=== PATIENT | male | born 1990 | race Caucasian/White ===

== ENCOUNTER → 2024-05-02 | Outpatient (CLI) | payer BC, OTHER ==
--- NOTE | 2024-05-02 12:02 | XR ---
EXAM TYPE: LUMBAR SPINE X RAY SERIES COMPARISON: NONE HISTORY: Pain TECHNIQUE: 4 views are submitted. FINDINGS: Alignment is anatomic. The pedicles are intact. The transverse processes are intact. There is no s pondylolysis or spondylolisthesis. Multilevel [id number] degenerative disc disease with facet arthropathy L5-S1. IMPRESSION: 1. Multilevel [id number] degenerative disc disease.
== END | disposition home or self-care (01) ==
LOC: RADXRYALE 11:02
PROVIDERS: ATTEND Physician Assistant
DX: M51.36 Other intervertebral disc degeneration, lumbar region (principal)
CPT/HCPCS: 72110

== ENCOUNTER 2024-05-03 20:18 | Emergency (ER) | payer BC, OTHER ==
[2024-05-03 20:51] VITALS: RESP 18
[2024-05-03] MEDS: KETOROLAC 15 MG/ML 1 ML VIAL IM STA (21:24)
[2024-05-03] MEDS: DEXAMETHASONE SOD PHOSPHATE 10 MG/ML 1 ML VIAL IM STA (21:25)
[2024-05-03] MEDS: LIDOCAINE 4% PATCH TOPICAL ONE (21:25)
[2024-05-03] MEDS: ORPHENADRINE 30 MG/ML 2 ML VIAL IM STA (21:25)
--- NOTE | 2024-05-03 22:22 | ED ---
Back Pain HPI - General Chief Complaint: Back Pain/Injury Stated Complaint: back pain Time Seen by Provider: 05/03/24 21:03 Source: patient - History of Present Illness Initial Comments: 34-year-old male presenting with chief complaint of lower back pain. Pain has been worsening over the last week. Particularly worse on the right side. Dates that he does not remember any injury or trauma. He was lifting heavy objects prior to his pain. He had a recent x-ray ordered by [facility], has not been given the results yet. No loss of bowel or bladder control or saddle paresthesia. He does have radiation of pain into the right leg on occasion. No abdominal pain, dysuria, hematuria, fever, chills, nausea, vomiting. - Related Data Previous Rx's Medication Instructions Recorded Cyclobenzaprine [Flexeril] 10 mg PO TID PRN #15 tab 05/03/24 Lidocaine 5% Patch [Lidoderm 5% 1 patch TOPICAL DAILY PRN #30 patch 05/03/24 Patch] Allergies Allergy/AdvReac Type Severity Reaction Status Date / Time No Known Allergies Allergy Verified 05/03/24 20:51 Review of Systems ROS Statement: Those systems with pertinent positive or pertinent negative responses have been documented in the HPI. ROS Other: All systems not noted in ROS Statement are negative. General Exam Limitations: no limitations General appearance: alert, in no apparent distress Head exam: Present: atraumatic, normocephalic Eye exam: Present: normal appearance, EOMI Neck exam: Present: normal inspection. Absent: meningismus Respiratory exam: Absent: respiratory distress Cardiovascular Exam: Present: regular rate Back exam: Present: normal inspection, paraspinal tenderness Neurological exam: Present: alert, oriented X3 Psychiatric exam: Present: normal affect, normal mood Skin exam: Present: warm, dry Course Vital Signs 05/03/24 05/03/24 20:40 22:55 Temperature 98.7 F 98.4 F Pulse Rate 76 71 Respiratory 18 18 Rate Blood Pressure 143/86 131/79 O2 Sat by Pulse 98 96 Oximetry Medical Decision Making - Medical Decision Making Was pt. sent in by a medical professional or institution (, PA, IMAGING TECHNOLOGIST, urgent care, hospital, or fci...) When possible be specific @ -No Did you speak to anyone other than the patient for history (EMS, parent, family, police, friend...)? What history was obtained from this source @ -No Did you review nursing and triage notes (agree or disagree)? Why? @ -I reviewed and agree with nursing and triage notes Were old charts reviewed (outside hosp., previous admission, EMS record, old EKG, old radiological studies, urgent care reports/EKG's, fci records)? Report findings @ -Reviewed the patient's x-rays from 05/02, they show multilevel mild to moderate degenerative disc disease Differential Diagnosis (chest pain, altered mental status, abdominal pain women, abdominal pain men, vaginal bleeding, weakness, fever, dyspnea, syncope, headache, dizziness, GI bleed, back pain, seizure, CVA, palpatations, mental health, musculoskeletal)? @ -Not applicable EKG interpreted by me (3pts min.). @ -As above X-rays interpreted by me (1pt min.). @ -None done CT interpreted by me (1pt min.). @ -None done U/S interpreted by me (1pt. min.). @ -None done What testing was considered but not performed or refused? (CT, X-rays, U/S, labs)? Why? @ -None What meds were considered but not given or refused? Why? @ -None Did you discuss the management of the patient with other professionals (professionals i.e. , PA, IMAGING TECHNOLOGIST, lab, RT, psych nurse, social worker assistant, retail account manager, teacher, special forces warrant officer, keycase assembler)? Give summary @ -No Was smoking cessation discussed for >3mins.? @ -No Was critical care preformed (if so, how long)? @ -No Were there social determinants of health that impacted care today? How? (Homelessness, low income, unemployed, alcoholism, drug addiction, transportation, low edu. Level, literacy, decrease access to med. care, fdc, rehab)? @ -No Was there de-escalation of care discussed even if they declined (Discuss DNR or withdrawal of care, Hospice)? DNR status @ -No What co-morbidities impacted this encounter? (DM, HTN, Smoking, COPD, CAD, Cancer, CVA, ARF, Chemo, Hep., AIDS, mental health diagnosis, sleep apnea, morbid obesity)? @ -None Was patient admitted / discharged? Hospital course, mention meds given and route, prescriptions, significant lab abnormalities, going to OR and other pertinent info. @ -34-year-old male presenting with chief complaint of lower back pain. No red flag symptoms. He is given pain medication. He had x-rays performed on 05/02 that showed degenerative disc disease. I educated the patient on his x-ray findings. On reassessment he reports improvement in his pain. He feels ready for discharge home. Follow-up with PCP. Report back to ER with any new or worsening symptoms. Discussed return parameters and answered all questions. Patient conveyed verbal understanding and agreed to the plan. I discussed this case in detail with my attending Dr. Silva Undiagnosed new problem with uncertain prognosis? @ -No Drug Therapy requiring intensive monitoring for toxicity (Heparin, Nitro, Insulin, Cardizem)? @ -No Were any procedures done? @ -No Diagnosis/symptom? @ -Mechanical back pain Acute, or Chronic, or Acute on Chronic? @ -Acute Uncomplicated (without systemic symptoms) or Complicated (systemic symptoms)? @ -Uncomplicated Side effects of treatment? @ -No Exacerbation, Progression, or Severe Exacerbation? @ -No Poses a threat to life or bodily function? How? (Chest pain, [place], [place], pneumonia, PE, COPD, DKA, ARF, appy, cholecystitis, CVA, Diverticulitis, Homicidal, Suicidal, threat to staff... and all critical care pts) @ -No Disposition Clinical Impression: Mechanical back pain Disposition: HOME SELF-CARE Condition: Good Instructions (If sedation given, give patient instructions): Acute Low Back Pain (ED), Lower Back Exercises (ED) Additional Instructions: Follow-up with your PCP. Report back to ER with any new or worsening symptoms. Take Motrin and Tylenol as needed for pain control. Do not take cyclobenzaprine before driving or operating heavy machinery as it may cause drowsiness. Prescriptions: Cyclobenzaprine [Flexeril] 10 mg PO TID PRN #15 tab PRN Reason: Spasms Lidocaine 5% Patch [Lidoderm 5% Patch] 1 patch TOPICAL DAILY PRN #30 patch PRN Reason: Pain Is patient prescribed a controlled substance at d/c from ED?: No Referrals: David Villar DO [Primary Care Provider] - 1-2 days Time of Disposition: 22:20
[2024-05-03 22:58] VITALS: BP 131/79; PULSE 71; TEMP 98.4
== END 2024-05-03 22:57 | disposition home or self-care (01) ==
LOC: SUPCPDRO 20:18 → EC 20:18
DX: M54.50 Low back pain, unspecified (principal)
CPT/HCPCS: 99283; 96372 ×3; J1100; J2360; J1885